=== PATIENT | male | born 1995 | race Hispanic/Latino ===

== ENCOUNTER 2020-05-16 12:44 | Emergency (ER) | payer OTHER ==
[~2020-05-16] VITALS: Ht 172.7 cm; Wt 127.0 kg
[2020-05-16] MEDS ORDERED: KETOROLAC TROMETHAMINE 60 MG/2 ML VIAL IM ONE (13:15)
[2020-05-16] MEDS ORDERED: HYDROCODONE/APAP 5MG-325MG TAB PO ONE (13:15)
--- NOTE | 2020-05-16 14:08 | Emergency Department Note ---
History of Present Illnes History of Present Illness Chief Complaint: Back Pain History of Present Illness This is a 25 year old male arrives to the ED with complaints of back pain patient states pain began after lifting a heavy item. Chief Complaint Comment Patient in from home with complaints of lower back pain that started 2 days ago. Patient reports that he was lifting an engine at work and the pain started after that. Patient denies loss of bowel or bladder control. States pain is 9/10 and that it radiates down his legs. Historian: Patient Arrival Mode: Car Onset (how long ago): day(s) Radiation: Reports non-radiation Severity: moderate Duration (how long): day(s) Timing of current episode: constant Chronicity: new Past Medical/Family History Physician Review I have reviewed the patient's past medical and family history. Any updates have been documented here. Past Medical History Recent Fever: No Clinical Suspicion of Infectio: No New/Unexplained Change in Ment: No Past Medical History: None Past Surgical History: None Social History Smoking Cessation: Never Smoker Counseling Performed: No Alcohol Use: Occasional Any Illegal Drug Use: No Other Any Pre-Existing Lines (PICC,: No Review of Systems Review of Systems Constitutional: Reports no symptoms EENTM: Reports no symptoms Cardiovascular: Reports no symptoms Respiratory: Reports no symptoms Gastrointestinal: Reports no symptoms Genitourinary: Reports no symptoms Musculoskeletal: Reports as per HPI Integumentary: Reports no symptoms Neurological: Reports no symptoms Psychological: Reports no symptoms Endocrine: Reports no symptoms Hematological/Lymphatic: Reports no symptoms Physical Exam Related Data Allergies: Coded Allergies: No Known Allergies (Unverified , 05/16/20) Triage Vital Signs Vital Signs Date Time Temp Pulse Resp B/P (MAP) Pulse Ox O2 Delivery O2 Flow Rate FiO2 05/16/20 13:04 98.8 58 18 126/70 100 Room Air Physical Exam CONSTITUTIONAL Constitutional: Present well-developed, Present well-nourished HENT HENT: Present normocephalic, Present atraumatic, Present oropharynx clear/moist, Present nose normal HENT L/R: Present left ext ear normal, Present right ext ear normal EYES Eyes: Reports PERRL, Reports conjunctivae normal NECK Neck: Present ROM normal PULMONARY Pulmonary: Present effort normal, Present breath sounds normal CARDIOVASCULAR Cardiovascular: Present regular rhythm, Present heart sounds normal, Present capillary refill normal, Present normal rate GASTROINTESTINAL Abdominal: Present soft, Present nontender, Present bowel sounds normal GENITOURINARY Genitourinary: Present exam deferred SKIN Skin: Present warm, Present dry MUSCULOSKELETAL Musculoskeletal: Present tenderness NEUROLOGICAL Neurological: Present alert, Present oriented x 3, Present no gross motor or sensory deficits PSYCHOLOGICAL Psychological: Present mood/affect normal, Present judgement normal Results Imaging Imaging results reviewed: Yes Assessment & Plan Medical Decision Making MDM 32-year-old male arrives to the ED with complaints of back pain after lifting heavy boxes at work. Patient otherwise able to ambulate, no neuro deficits. Patient stable for discharge home, noted relief with muscle relaxant and pain medication. Assessment & Plan Final Impression: (1) Back pain Depart Disposition: HOME, SELF-CARE Last Vital Signs Date Time Temp Pulse Resp B/P (MAP) Pulse Ox O2 Delivery O2 Flow Rate FiO2 05/16/20 13:04 98.8 58 18 126/70 100 Room Air Home Meds Active Scripts Naproxen (NAPROXEN) 250 Mg Tablet, 250 MG PO BID PRN for MUSCLE SPASMS, #20 TAB Prov:REJI HAMPTON DO 05/16/20 Methocarbamol (ROBAXIN-750) 750 Mg Tablet, 750 MG PO Q8HR PRN for MUSCLE SPASMS, #20 Prov:REJI HAMPTON DO 05/16/20 Medications in the ED Diazepam 5 mg DAILY PO ; Start 05/17/20 at 09:00; Stop 05/24/20 at 08:59 Ketorolac Tromethamine 60 mg ONCE ONCE IM ; Start 05/16/20 at 13:15; Stop 05/16/20 at 13:22; Status DC Acetaminophen/ Hydrocodone Bitart 1 ea ONCE ONCE PO ; Start 05/16/20 at 13:15; Stop 05/16/20 at 13:22; Status DC REJI HAMPTON DO May 16, 2020 14:08
--- NOTE | 2020-05-16 15:18 | Diagnostic Imaging Report ---
EXAMINATION: CT of the lumbar spine HISTORY: 25-year-old male with low back pain for the last 2 days COMPARISON: None available TECHNIQUE: Multidetector helical axial images were obtained without contrast from L1 to S1. Dose modulation, iterative reconstruction, and/or weight based adjustment of the mA/kV was utilized to reduce the radiation dose to as low as reasonably achievable. FINDINGS: Alignment: Straightening of the lumbar lordosis, which may be related to muscular spasm or positional. Vertebral bodies: Normal height and density. Paraspinal muscles: Normal. Intervertebral disks: L1-L2 to L3-L4: Normal L4-L5: Minimal disc bulge without significant canal or foraminal stenoses L5-S1: Minimal visible without canal or foraminal stenoses. IMPRESSION: No acute lumbar spine abnormalities, particularly no fractures/dislocations or large disc herniations. If clinical concern remains consider lumbar spine MRI for further evaluation. Signed by: Dr. Cynthia Pizarro M.D. on 05/16/2020 3:14 PM
[2020-05-16] MEDS ORDERED: NAPROXEN250 MG PO (15:36)
[2020-05-16] MEDS ORDERED: ROBAXIN-750750 MG PO (15:36)
[2020-05-17] MEDS ORDERED: DIAZEPAM 5 MG TAB PO SCH (09:00)
== END 2020-05-16 16:28 | disposition home or self-care (01) ==
LOC: ER 13:47
DX: M54.5 Low back pain (principal); X50.0XXA Overexertion from strenuous movement or load, initial encounter; Y99.0 Civilian activity done for income or pay
CPT/HCPCS: 72131; 99283; J1885

== ENCOUNTER 2021-04-29 10:03 | Emergency (ER) | payer SELFPAY ==
[~2021-04-29] VITALS: Ht 172.7 cm; Wt 127.0 kg
[~2021-04-29 10:03] MED LIST: NAPROXEN250 MG PO; ROBAXIN-750750 MG PO
[2021-04-29] MEDS ORDERED: TETRACAINE HCL 0.5% OPTH SOLN 4 ML BTL OP ONE (10:45)
[2021-04-29] MEDS ORDERED: EYE IRRIGATION (OPTH) 120 ML BTL OP ONE (10:45)
[2021-04-29] MEDS ORDERED: TOBRAMYCIN 0.3% OPTH OINT 3.5 GM TUBE OD ONE (11:30)
[2021-04-29] MEDS ORDERED: FLUORESCEIN SOD(OPTH) 1 MG STRP OP ONE (11:30)
== END 2021-04-29 11:46 | disposition home or self-care (01) ==
LOC: ER 10:41
DX: T15.01XA Foreign body in cornea, right eye, initial encounter (principal); X58.XXXA Exposure to other specified factors, initial encounter; Y92.008 Other place in unspecified non-institutional (private) residence as the place of occurrence of the external cause
CPT/HCPCS: 99283